=== PATIENT | female | born 1955 | race Caucasian/White ===

== ENCOUNTER 2019-05-29 00:28 | Day surgery (SDC) | payer BC, SELFPAY ==
--- NOTE | 2019-05-28 17:31 | WPDANESEPP ---
Anes - Eval Pre Procedure Procedure: Operation Date: 05/29/19 08:00 Proposed Procedures p Screening Colonoscopy - Tiago Dior MD Date/Time: 05/28/19 17:31 Pre Op Diagnosis: Neoplasm Screening/ Fam Hx Colon Polyps Patient Data Age: 63 Gender: F Height: Weight: Allergies Allergy/AdvReac Type Severity Reaction Status Date / Time dexlansoprazole Allergy Unknown SWELLING Verified 05/15/19 13:36 TO EYES Home Medications Medication Instructions Recorded Confirmed Type alprazolam 0.5 mg PO TID PRN 05/15/19 05/15/19 History ascorbic acid (vitamin C) [Vitamin 1 g PO DAILY 05/15/19 05/15/19 History C] cholecalciferol (vitamin D3) 2,000 unit PO DAILY 05/15/19 05/15/19 History [Vitamin D3] sertraline 100 mg PO DAILY 05/15/19 05/15/19 History valsartan-hydrochlorothiazide 160 tablet PO DAILY 05/15/19 05/15/19 History Patient hx anesthesia problems: none Family hx anesthesia problems: none PMFSH Past Medical History Medical History (Updated 05/28/19 @ 17:32 by Belinda Matthew CRNA) Anxiety Depression HLD (hyperlipidemia) HTN (hypertension) Liver lesion Exam Day of Procedure 05/28/19 17:31
[2019-05-29 06:55] VITALS: BP 105/72; PULSE 82; RESP 16; TEMP 36.9; O2SAT 98
[2019-05-29] MEDS: LACTATED RINGERS 1,000 ML 150 ML IV CONT (06:59)
--- NOTE | 2019-05-29 07:22 | WPDANESEFPP ---
Anes - Eval Final PreProcedure Day of Procedure 05/29/19 07:22 Patient weight: normal Heart: regular rate and rhythm Lungs: clear to auscultation Airway: Mallampati scale Neurological: alert and oriented ASA classification: II Emergent: no Anesthetic plan: proceed Anesthesia type and monitoring: general GIVS and standard monitoring Informed Consent: The patient's anesthetic plan and its attendant risks and benefits were discussed with the patient/family/POA. Questions were solicited and answers provided to the satisfaction of the patient/family/POA.
--- NOTE | 2019-05-29 08:04 | WPDGICN ---
Assessment and Plan Additional Plan This is a 63-year-old white female patient seen in evaluation at the request of Dr. Gahssan El. Patient states that her current weight appetite bowel movements are normal. She denies any blood in her stools. She denies any abdominal pain. Her bowel habits are regular. Family history is significant her mother had colon polyps. Current medications include Diovan period and hydrochlorothiazide. Patient is allergic to Dexilant. Physical exam reveals her to be alert. Oriented x3. Vital signs stable. HEENT exam unremarkable. Lungs are clear to auscultation and percussion. Heart is without murmur or extra sounds. Abdominal exam bowel sounds are present soft nontender with no organomegaly. Digital external rectal exam normal. Impression 1. Family history of colon polyps in mother. Plan is for screening colonoscopy now and it intervals in the future. Typically 5 years is suggested. GI Consult Note Consult date/time: 05/29/19 08:04 HPI: Erum Mitchell is a 63 year old female [facility] Past Medical History Medical History (Updated 05/28/19 @ 17:32 by Belnida Matthew CRNA) Anxiety Depression HLD (hyperlipidemia) HTN (hypertension) Liver lesion Meds Home Medications and Allergies Home Medications Medication Instructions Recorded Confirmed Type alprazolam 0.5 mg PO TID PRN 05/15/19 05/15/19 History ascorbic acid (vitamin C) [Vitamin 1 g PO DAILY 05/15/19 05/15/19 History C] cholecalciferol (vitamin D3) 2,000 unit PO DAILY 05/15/19 05/15/19 History [Vitamin D3] sertraline 100 mg PO DAILY 05/15/19 05/15/19 History valsartan-hydrochlorothiazide 160 tablet PO DAILY 05/15/19 05/15/19 History Allergies Allergy/AdvReac Type Severity Reaction Status Date / Time dexlansoprazole Allergy Unknown SWELLING Verified 05/29/19 06:53 TO EYES Vital Signs Vital Signs - 24 hr 05/29/19 06:55 Temperature 36.9 C Pulse Rate 82 Respiratory Rate 16 Blood Pressure 105/72 Pulse Oximetry 98
[2019-05-29 08:31] VITALS: BP 101/67; PULSE 65; RESP 16
[2019-05-29 08:41] VITALS: BP 107/78; PULSE 61; RESP 18; O2SAT 100
[2019-05-29 08:51] VITALS: BP 119/72; PULSE 55; RESP 16; O2SAT 100
== END 2019-05-29 09:04 | disposition home or self-care (01) ==
PROVIDERS: PCP Internal Medicine; Visit Provider Internal Medicine Gastroenterology
PROC: 0DJD8ZZ Inspection of Lower Intestinal Tract, Via Natural or Artificial Opening Endoscopic (ICD-10-PCS; CPT 45378; principal; 2019-05-29 08:00)
DX: Z12.11 Encounter for screening for malignant neoplasm of colon (principal); K57.30 Diverticulosis of large intestine without perforation or abscess without bleeding; K64.8 Other hemorrhoids; Z83.71 Family history of colonic polyps; I10 Essential (primary) hypertension; E78.5 Hyperlipidemia, unspecified; F41.8 Other specified anxiety disorders
CPT/HCPCS: 45378; J2704; J7120

== ENCOUNTER 2023-10-08 12:18 | Emergency (ER) | payer MEDICARE, SELFPAY ==
[2023-10-08 12:28] VITALS: BP 113/69; PULSE 98; RESP 16; TEMP 37.3; O2SAT 97
--- NOTE | 2023-10-08 12:44 | ED.ANIMALBIT ---
HPI - Animal Bite General Chief Complaint: Animal Bite Stated Complaint: Dog Bite Time Seen by Provider: 10/08/23 12:30 Source: patient Mode of arrival: ambulatory Limitations: no limitations History of Present Illness HPI narrative: Erum is a 67-year-old female patient presenting to the clinic today with complaints of a dog bite to the left dorsal hand. She reports that she was bit by her own dog it last night. Dog is up-to-date on vaccinations. She states she woke up this morning with her left hand swelling with redness and swelling extending into the mid forearm. She denies any fever, chills, or body aches. She is not diabetic. Tetanus is not up today according to chart records. Related Data Home Medications Medication Instructions Recorded Confirmed multivitamin 1 tablet PO DAILY 03/07/23 10/08/23 Allergies Allergy/AdvReac Type Severity Reaction Status Date / Time dexlansoprazole Allergy Unknown SWELLING Verified 10/08/23 12:23 TO EYES Review of Systems Review of Systems: Pertinent positives per HPI. Patient denies any fever, chills, headache, visual changes, dizziness, cough, runny nose, sore throat, shortness of breath, chest pain, palpitations, nausea, vomiting, diarrhea, constipation, abdominal pain, or any urinary issues. [facility] Past Medical History Medical History (Updated 10/08/23 @ 12:52 by Filemon Sim APRN) Anxiety Depression HLD (hyperlipidemia) HTN (hypertension) Liver lesion Right wrist pain Surgical History Surgical History No pertinent past surgical history Social History Social History Smoking status: Never smoker Alcohol intake: current Drinks per week: 7 Substance use: never Lack of Transportation: No Lack of Food: Never True Current Housing: I Have Housing Concerned About Future Housing: No Difficulty Paying Gas/Electric Bills: No Difficulty Paying for Meds: No Currently Unemployed: No Difficulty w/ Childcare or Family Care: No Living arrangements: with family Occupation/Education: retired Gender identity (if verbalized by the patient): Female Comments At the time of my signature, I reviewed and agree with the nursing past medical, surgical, social, and family history. There is no relevant family history pertinent to the patient complaint. Exam Narrative: General: Well-developed, well nourished, in no apparent distress Head: Normocephalic, atraumatic. Cardio: Regular rate and rhythm, s1 and s2 normal, no murmur appreciated. Resp: Clear to auscultation bilaterally, no rhonchi, rales, wheezing or rubs. Musculoskeletal: No deformity, redness and swelling noted to the left hand up to the mid forearm with lymphatic streaking on the ulnar aspect of the left forearm and into the left upper arm. Tender to palpation over the left dorsal hand, scabbed over puncture wound to the mid dorsal hand, grossly normal range of motion, muscle strength strong and equal, peripheral pulse strong, no cyanosis, normal gait and station Course Course Emergency Course: Portions of this record may have been created with voice recognition software. Level of Care: Express Care Visit Vital Signs Vital signs: Vital Signs Temperature 37.3 C 10/08/23 12:28 Pulse Rate 98 10/08/23 12:28 Respiratory Rate 16 10/08/23 12:28 Blood Pressure 113/69 10/08/23 12:28 Pulse Oximetry 97 10/08/23 12:28 Temperature 37.3 C 10/08/23 12:28 Pulse Rate 98 10/08/23 12:28 Respiratory Rate 16 10/08/23 12:28 Blood Pressure 113/69 10/08/23 12:28 Pulse Oximetry 97 10/08/23 12:28 Vital signs reviewed MDM - Animal Bite MDM Narrative Medical decision making narrative: At the time of visit patient is resting comfortably on the exam table. Patient appears to be nontoxic. Plan: Recommend transfer to the ER as
== END 2023-10-08 12:42 | disposition short-term general hospital (02) ==
PROVIDERS: Emergency Provider Nurse Practitioner Family; PCP Physician Assistant Medical
DX: S61.432A Puncture wound without foreign body of left hand, initial encounter (principal); L03.114 Cellulitis of left upper limb; W54.0XXA Bitten by dog, initial encounter; E78.5 Hyperlipidemia, unspecified; I10 Essential (primary) hypertension; F41.9 Anxiety disorder, unspecified
CPT/HCPCS: 99212; G0463

== ENCOUNTER 2023-10-08 13:22 | Emergency (ER) | payer MEDICARE, SELFPAY ==
[2023-10-08 13:23] VITALS: BP 121/62; PULSE 121; RESP 16; TEMP 36.5; O2SAT 100
[2023-10-08] MEDS: AMPICILLIN SULB 3 GM/NS 100 ML 3 GM/100 ML VIAL IVPB (14:46)
[2023-10-08 15:01] LABS: Basophils Percent Auto 0.3 % (0.2-1.2); Eosinophils Percent Auto 0.2 % (0-4.4); Hematocrit 39.8 % (37.0-47.0); Hemoglobin 13.6 g/dL (12.0-15.0); Immature Granulocyte Absolute 0.03 K/mm3 (0.00-0.031); Immature Granulocyte Percent A 0.3 % (0-0.5); Lymphocytes Absolute Auto 1.38 K/mm3 (0.9-3.2); Lymphocytes Percent Auto 12.8 % (18.3-44.2); Mean Corpuscular HGB Conc 34.2 g/dl (32-36); Mean Corpuscular Hemoglobin 33.7 pg (26-34); Mean Corpuscular Volume 98.5 fl (80-100); Mean Platelet Volume 10.4 fl (7.4-10.4); Monocytes Absolute Auto 0.9 K/mm3 (0.1-0.6); Monocytes Percent Auto 8.2 % (2.6-8.5); Neutrophils Absolute Auto 8.4 K/mm3 (1.3-6.7); Neutrophils Percent Auto 78.2 % (45.5-73.1); Platelet Count Result 157 k/mm3 (150-375); Red Blood Count 4.04 M/mm3 (4.2-5.4); Red Cell Distribution Width 12.6 % (11.5-14.5); White Blood Count 10.7 K/mm3 (4.5-10.0)
--- NOTE | 2023-10-08 15:11 | ED.ANIMALBIT ---
HPI - Animal Bite General Chief Complaint: Animal Bite Stated Complaint: dog bite Time Seen by Provider: 10/08/23 14:00 Source: patient Mode of arrival: ambulatory Limitations: no limitations History of Present Illness HPI narrative: This is a 67-year-old female who presents to the ED with chief complaint of dog bite injury to the left hand that occurred yesterday. Patient reports that today the hand became swollen and red. She noticed streaking going up the arm. She will went to urgent care referred her to the ED further evaluation and management. Patient states that she has been feeling fine otherwise. There is some pain with palpation. Denies numbness, weakness, nausea, vomiting, chest pain, cough, headache. States that it was her dog and the dog is vaccinated Related Data Home Medications Medication Instructions Recorded Confirmed multivitamin 1 tablet PO DAILY 03/07/23 10/08/23 Allergies Allergy/AdvReac Type Severity Reaction Status Date / Time dexlansoprazole Allergy Unknown SWELLING Verified 10/08/23 14:25 TO EYES Review of Systems Review of Systems: All systems as dictated in [facility] Past Medical History Medical History (Updated 10/08/23 @ 15:35 by Aaron Trevizo PA-C) Anxiety Depression HLD (hyperlipidemia) HTN (hypertension) Liver lesion Right wrist pain Surgical History Surgical History No pertinent past surgical history Social History Social History Smoking status: Never smoker Alcohol intake: current Drinks per week: 7 Substance use: never Lack of Transportation: No Lack of Food: Never True Current Housing: I Have Housing Concerned About Future Housing: No Difficulty Paying Gas/Electric Bills: No Difficulty Paying for Meds: No Currently Unemployed: No Difficulty w/ Childcare or Family Care: No Living arrangements: with family Occupation/Education: retired Gender identity (if verbalized by the patient): Female Exam Narrative: GENERAL: Well-appearing, well-nourished, and in no acute distress. HEAD: Normocephalic, atraumatic. EYES: PERRLA and EOMI. ENT: Nares clear, no rhinorrhea or epistaxis. Mucous membranes moist. Oropharynx without tonsillar hypertrophy exudate or other lesions. NECK: Supple. No adenopathy or masses. CHEST: No respiratory distress. Clear to auscultation. No wheezes rales or rhonchi HEART: Regular rate and rhythm. No murmur heard. Normal peripheral pulses. ABDOMEN: Soft, nontender, nondistended, normal active bowel sounds. MSK: Normal range of motion. No edema. SKIN: erythematous left hand. Lymphatic red streaking up the arm all the way to axilla. Tender to palpation. Small bite margarita region to the dorsum of the left hand. compartments are soft NEURO: Alert and oriented x4. No focal deficits. PSYCH: Normal mood and affect. Course Vital Signs Vital signs: Vital Signs Temperature 97.7 F 10/08/23 13:23 Pulse Rate 121 H 10/08/23 13:23 Respiratory Rate 16 10/08/23 13:23 Blood Pressure 121/62 10/08/23 13:23 Pulse Oximetry 100 10/08/23 13:23 Temperature 97.7 F 10/08/23 13:23 Pulse Rate 121 H 10/08/23 13:23 Respiratory Rate 16 10/08/23 13:23 Blood Pressure 121/62 10/08/23 13:23 Pulse Oximetry 100 10/08/23 13:23 MDM - Animal Bite MDM Narrative Medical decision making narrative: This is a 67-year-old female who presents to the ED with chief complaint of redness and streaking of the left arm after dog bite injury yesterday. Vitals are normal. Exam shows lymphangitic streaking up the left arm towards axilla. There is erythema most concentrated around the dorsum of the left hand. The compartments are soft. Lab work shows only mildly elevated white count. CMP unremarkable. CRP is 5.5. She is otherwise well-appearing on exam. She is much
[2023-10-08 15:13] LABS: Alanine Aminotransferase 40 U/L (6-35); Albumin Level 5.1 g/dL (3.5-5.1); Alkaline Phosphatase 48 U/L (38-126); Anion Gap 8 mmol/L (4-12); Aspartate Amino Transferase 38 U/L (14-36); Bilirubin,Total 0.7 mg/dL (0.2-1.3); Blood Urea Nitrogen 23 mg/dL (7-17); CRP 5.5 mg/dL (<1.0); Calcium 9.5 mg/dL (8.4-10.2); Carbon Dioxide 28 mmol/L (22-30); Chloride 102 mmol/L (98-107); Estimated CRCL calculation 56 ml/min; Estimated Glomerular Filt Rate > 60; Glucose 99 mg/dL (65-110); Potassium 3.7 mmol/L (3.4-5.0); Sodium 138 mmol/L (137-145)
[2023-10-08 15:37] VITALS: BP 138/79; PULSE 75; RESP 19; O2SAT 99
== END 2023-10-08 15:50 | disposition home or self-care (01) ==
PROVIDERS: Emergency Provider Physician Assistant; PCP Physician Assistant Medical
DX: L03.114 Cellulitis of left upper limb (principal); S61.452A Open bite of left hand, initial encounter; E78.5 Hyperlipidemia, unspecified; I10 Essential (primary) hypertension; W54.0XXA Bitten by dog, initial encounter
CPT/HCPCS: 36415; 80053; 85025; 86140; 96365; 99284; J0295

== ENCOUNTER 2024-04-11 11:01 | Emergency (ER) | payer MEDICARE, SELFPAY ==
[2024-04-11 11:16] VITALS: BP 135/82; PULSE 73; RESP 16; TEMP 36.7; O2SAT 100
--- NOTE | 2024-04-11 11:23 | ED_ITS ---
HPI - Skin/Abscess/Foreign Bdy General Chief complaint: Skin/Abscess/Foreign Body Stated complaint: shingles Time Seen by Provider: 04/11/24 11:23 Source: patient, RN notes reviewed and old records reviewed Mode of arrival: ambulatory Limitations: no limitations History of Present Illness HPI narrative: patient presents with complaints of 2 days of increasingly painful rash to right-sided torso. Reports rash is spreading. Initially was itchy, now with burning in quality. Patient has been using topicals with no relief. She does have history of chickenpox as a child Related Data Home Medications ?Medication ?Instructions ?Recorded ?Confirmed ?Last Taken ?Type multivitamin 1 tablet PO DAILY 03/07/23 10/10/23 Unknown History Allergies Allergy/AdvReac Type Severity Reaction Status Date / Time dexlansoprazole Allergy Unknown SWELLING Verified 04/11/24 11:14 TO EYES Review of Systems 2 Review of Systems: All systems reviewed & are unremarkable except as noted in HPI and below Constitutional: Constitutional: Reports no additional constitutional complaints ENT: Reports system reviewed and no additional complaints, except as documented Cardiovascular: Cardiovascular: Reports no additional cardiovascular complaints Respiratory: Respiratory: Reports no additional respiratory complaints Gastrointestinal: Gastrointestinal: Reports no additional gastrointestinal complaints Integumentary/Breasts: Skin/Breast: Reports system reviewed and no additional complaints, except as docu, Reports as per HPI and Reports rash PMFSH Past Medical History Medical History Anxiety Depression HLD (hyperlipidemia) HTN (hypertension) Liver lesion Right wrist pain Surgical History Surgical History No pertinent past surgical history Social History Social History Smoking status: Never smoker Alcohol intake: current Drinks per week: 7 Substance use: never Lack of Transportation: No Lack of Food: Never True Current Housing: I Have Housing Concerned About Future Housing: No Difficulty Paying Gas/Electric Bills: No Difficulty Paying for Meds: No Currently Unemployed: No Difficulty w/ Childcare or Family Care: No Living arrangements: with family Occupation/Education: retired Gender identity (if verbalized by the patient): Female Comments At the time of my signature, I reviewed and agree with the nursing past medical, surgical, social, and family history. There is no relevant family history pertinent to the patient complaint. Exam 2 Const: General: cooperative, no acute distress, alert and awake O rientation/consciousness: oriented to person, oriented to place and oriented to time HENMT: Head: normal to inspection Resp: Effort & Inspection: normal respiratory effort and able to speak in complete sentences Auscultation: clear to auscultation bilaterally, no crackles, no rales, no rhonchi and no wheezes Cardio: Palpation: normal PMI Rate: regular rate Rhythm: regular rhythm Heart sounds: S1 normal heart sound present and S2 normal heart sound present Skin: Full body images: 1. vesicular rash Neuro: General: oriented to person, oriented to place and oriented to time Cranial nerves: Yes CN's II-XII intact bilaterally Psych: Appearance: grossly normal Thought process: Normal thought process present Insight: Good insight present (Psych) Judgement: Good judgement present (Psych) Course Course Level of Care: Express Care Visit Vital Signs Vital signs: Vital Signs Temperature 98.0 F 04/11/24 11:16 Pulse Rate 73 04/11/24 11:16 Respiratory Rate 16 04/11/24 11:16 Blood Pressure 135/82 04/11/24 11:16 Pulse Oximetry 100 04/11/24 11:16 Oxygen Delivery Room Air 04/11/24 11:16 Temperature 98.0 F 04/11/24 11:16 Pulse Rate 73 04/11/24 11:16 Respiratory Rate 16 04/11/24 11:16 Blood Pressure 135/82 04/11/24 11:16 Pulse Oximetry 100 04/11/24 11:16 Oxygen Delivery Room Air 04/11/24 11:16 Reviewed MDM - Skin/Abscess/Foreign Bdy MDM Narrative Medical decision making narrative: fascicular rash limited to the right side of the torso consistent with herpes zoster. Treat as such. Patient nontoxic appearing, stable for discharge home. Discharge instructions reviewed with patient, as well as provided in writing per nursing staff. The instructions also include specific and strict return/GO TO THE ER as well as f/u information. All questions have been answered, and the patient deny any further questions with discharge and discharge plan. Some parts of this dictation were generated by voice recognition software and may contain typographical and/or grammatical inaccuracies. Differential Diagnosis Differential diagnosis: Likely urticaria, herpes zoster, allergic reaction to drug and cellulitis Medical Records Attestation: I reviewed the patient's medical records. Discharge Plan Discharge Clinical Impression: Herpes zoster Patient Disposition: Home, Self-Care Condition: Stable Instructions: Antibiotic Form, Shingles (ED) Additional Instructions: take medications as prescribed. Follow with primary care provider. Emergency department for new or worse symptoms Patient Language: Austrian Prescriptions: New valacyclovir [Valtrex] 1 gram tablet 1,000 mg PO Q8H 7 Days Qty: 21 1RF No Action multivitamin Tablet 1 tablet PO DAILY alprazolam 0.5 mg tablet 0.5 mg PO TID PRN (Reason: Anxiety) Qty: 60 2RF valsartan-hydrochlorothiazide 160-12.5 mg tablet 1 tablet PO DAILY Qty: 90 0RF Follow-up/Referrals: Romina Peralta PA-C [Primary Care Provider] - 1 Week Time of Disposition: 11:35
== END 2024-04-11 11:39 | disposition home or self-care (01) ==
PROVIDERS: Emergency Provider Nurse Practitioner Family; PCP Physician Assistant Medical
DX: B02.9 Zoster without complications (principal); F41.8 Other specified anxiety disorders; E78.5 Hyperlipidemia, unspecified; I10 Essential (primary) hypertension
CPT/HCPCS: 99213; G0463

== ENCOUNTER 2025-04-15 01:14 | Day surgery (SDC) | payer MEDICARE, SELFPAY ==
[2025-03-21 10:53] VITALS: BMI 19.8
--- OUTSIDE RECORDS SUMMARY | 2025-04-15 01:17 | XMS_ITS | Clinical Summary ---
Author Organization [facility] [employer] Address [address] [place] [address] Care Team Providers Care Jalousie Installer Name Role Phone Ghassan El MD Primary Care Provider [phone] Source Comments [facility],non-owned Affiliates and Associated Physician Practices is amultiple site organization consisting of ambulatory clinics and hospital sitesin [place] and [place]. This disclosure is being madepursuant to the Care Everywhere program and may not contain all information available regarding this patient. Last updated 18.[facility] [employer] Allergies Active Allergy Reactions Criticality Noted Date Comments Dexlansoprazole Swelling 12/20/2011 Facial swelling Medications * Be aware that medications may not be up to date on this document. Alwaysverify current medications with the patient. ALPRAZolam (XANAX) 0.5 MG tablet Take 1 tablet by mouth as needed 2 01/21/2018 Active valsartan-hydro CHLOROthiazide (DIOVAN HCT) 160-12.5 MG tablet Take 1 tablet by mouth once daily 0 11/06/2017 Active fluocinolone-hy droquinone-tret inoin (TRI-JC) 0.01-4-0.05 % cream Apply to affected area nightly, for fall, winter, and spring. 30 g 5 01/25/2021 Active Tretinoin (ALTRENO) 0.05 % lotion Apply as directed at bedtime. 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 (F LUZONE; FLULAVAL; FLUARIX; AFLURIA QUADRIVALENT; 6MO+), 0.5 ML (IIV4) 01/30/2019 Family History Medical History Relation Name Comments Cancer - Skin, Non Melanoma Mother Cancer - Skin, Melanoma Neg Hx Relation Name Status Comments Mother Social History Tobacco Use Types Packs/Day Years Used Date Smoking Tobacco: Never Smokeless Tobacco: Never Alcohol Use Standard Drinks/Week Comments Yes 0 (1 standard drink = 0.6 oz pur e alcohol) Comments Unknown Sex and Gender Information Value Date Recorded Sex Assigned at Not on file Legal Sex Female 6:17 AM [employer] Gender Identity Not on file Sexual Orientation Not on file Plan of Treatment Health Maintenance Due Date Last Done Comments BONE DENSITY TESTING 1955 COLOGUARD (AGES 45-75) - COLON CA SCREENING 1956 COLON MONITORING 1956 COLONOSCOPY - COLON CA SCREENING 1956 CT COLONOGRAPHY - COLON CA SCREENING 1956 Colorectal Cancer Screening 1956 FIT - COLON CA SCREENING 1956 FLEX SIG - COLON CA SCREENING 1956 LIPID TESTING 1956 MAMMOGRAM 1956 HEPATITIS C SCREENING 10/06/1974 DTAP/TDAP/TD VACCINES (1 - Tdap) 10/11/1975 PNEUMOCOCCAL VACCINE 50+ (1 of 1 - PCV) 2006 ZOSTER VACCINE (1 of 2) 2006 DEPRESSION SCREENING 04/17/2024 COVID-19 VACCINE (1 - 2024- season) 2024 INFLUENZA VACCINE (#1) 2024 , 01/06/2020, 03/01/2019, Additional history exists Respiratory Syncytial Virus (RSV) Vaccine Pt: or over 60 yrs (1 - 1-dose 75+ series) 10/11/2031 HEPATITIS B VACCINE Aged Out No longe r eligible based on patient's age to complete this topic HIB VACCINE Aged Out No longer eligi ble based on patient's age to complete this topic HPV VACCINE Aged Out No longer eligi ble based on patient's age to complete this topic MENINGOCOCCAL (Group B) VACCINE SHARED DECISION-MAKING Aged Out No longer eligible based on patient's age to complete this topic MENINGOCOCCAL GROUPS A/C/Y/W VACCINE Aged Out No longer eligible based on patient's age to complete this topic Insurance [facility] Care Teams Jalousie Installer Relationship Specialty Start Date End Date Ghassan El MD [address] [place] [address] [address] [place] [address] [phone] PCP - General 05/01/19
--- OUTSIDE RECORDS SUMMARY | 2025-04-15 01:17 | XMS_ITS | Clinical Summary ---
Author Organization [facility] Address [address] [place] [address] Phone Care Team Providers Care Supervisor Blood Name Role Phone Ghassan El MD Primary Care Provider [phone] Allergies Active Allergy Reactions Criticality Noted Date Comments Dexlansoprazole Swelling Low 12/20/2011 Medications ALPRAZolam (XANAX) 0.5 mg tablet Take 0.5 mg by mouth 2 times daily as needed. 05/01/2022 Active valsartan-hydro CHLOROthiazide (DIOVAN HCT) 160-12.5 mg tablet Take 1 Tablet by mouth daily. 05/16/2022 Active tretinoin (RETIN-A) 0.05 % Cream APPLY TO FACE ONCE NIGHTLY 03/17/2024 Active sertraline (ZOLOFT) 50 mg tabletIndicatio ns:Other social stressor Take 1 Tablet (50 mg) by mouth daily. 90 Tablet 4 05/08/2024 Active Active Problems Problem Noted Date Diagnosed Date Menopausal symptoms 12/20/2011 S/P vaginal hysterectomy 12/20/2011 Overview (12/20/2011): 1996 TVH (symptomatic uterine fibroids) Personal history of benign breast biopsy 012 Overview (12/20/2011): 1996, 2000 right/left (hx fibroadenoma) Family history of malignant neoplasm of breast 0 12/20/2011 Family history of ovarian cancer 12/20/2011 Resolved Problems Problem Noted Date Diagnosed Date Resolved Date Well woman exam with routine gynecological exam 12/20/2011 10/03/2016 Encounters Date Type Department Care Team Description 04/08/2025 External Device Data [facility] ABSTRACTION Provider, Abstract 04/08/2025 External Device Data [facility] ABSTRACTION Provider, Abstract 03/04/2025 External Device Data [facility] ABSTRACTION Provider, Abstract 02/12/2025 External Device Data [facility] ABSTRACTION Provider, Abstract 02/12/2025 External Device Data [facility] ABSTRACTION Provider, Abstract 02/05/2025 External Device Data [facility] ABSTRACTION Provider, Abstract 02/04/2025 External Device Data [facility] ABSTRACTION Provider, Abstract from Last 3 Months Immunizations Immunization Administration Dates Next Due INFLUENZA VACCINE QUADRIVALENT 6 MOS UP IM 02/03 INFLUENZA VACCINE QUADRIVALE NT 6 MOS UP PF IM 01/30/2019 Influenza, Unspecified Formulation 01/15/2021,,03/01/2019 Family History Medical History Relation Name Comments Diabetes Brother None Other Brother None Diabetes Father Ernie Heart Disease Father Ernie Hypertension Father Ernie Other Father Ernie lipid disorder Breast Cancer Maternal Aunt Ovarian Cancer Maternal Grandmother Carrie Heart Disease Mother Enzo Hypertension Mother Enzo Other Mother Enzo colon polyps, l ipid disorder, fibroids Thyroid Disease Mother Enzo Diabetes Paternal Aunt Diabetes Paternal Uncle Thyroid Disease Sister 1 Carina Thyroid Disease Sister 2 Flory Colon Cancer Neg Hx Relation Name Status Comments Brother None Father Ernie Maternal Aunt Maternal Grandmother Carrie Mother Enzo Paternal Aunt Paternal Uncle Sister 1 Carina Sister 2 Flory Social History Tobacco Use Types Packs/Day Years Used Date Smoking Tobacco: Never Smokeless Tobacco: Never Tobacco Cessation:Counseling Given: Not Answered Alcohol Use Standard Drinks/Week Comments Yes 0 (1 standard drink = 0.6 oz pur e alcohol) 3/week Comments No Sex and Gender Information Value Date Recorded Sex Assigned at Female 02/22/2024 10:49 AM OUTBOUND SALES PROFESSIONAL Legal Sex Female 5:39 AM OUTBOUND SALES PROFESSIONAL Gender Identity Female 02/22/2024 10:49 AM OUTBOUND SALES PROFESSIONAL Sexual Orientation Not on file Occupation Industry Job Start Date Job End Date Not on file Not on file Not on file Not on file Last Filed Vital Signs Vital Sign Reading Time Taken Comments Blood Pressure 128/82 05/08/2024 1:04 PM OUTBOUND SALES PROFESSIONAL Pulse 67 04/01/2013 2:02 PM OUTBOUND SALES PROFESSIONAL Temperature - - Respiratory Rate - - Oxygen Saturation - - Inhaled Oxygen Concentration - - Weight 60.1 kg (132 lb 9.6 oz) 05/08/2024 1:04 P M OUTBOUND SALES PROFESSIONAL Height 167.6 cm (5' 6) 05/08/2024 1:04 PM OUTBOUND SALES PROFESSIONAL Body Mass Index 21.4 05/08/2024 1:04 PM OUTBOUND SALES PROFESSIONAL Plan of Treatment Health Maintenance Due Date Last Done Comments DTAP/TDAP/TD VACCINES (1 - Tdap) 10/11/1975 FIT-DNA Q 3 years 2001 Flex Sig/CT Colonography Q 5 years 2001 PNEUMOCOCCAL VACCINE 50+ YEA RS (1 of 1 - PCV) 2006 ZOSTER VACCINE (1 of 2) 2006 FIT/FOBT Q 1 year 04/01/2014 04/01/2013 COLORECTAL SCREENING 01/08/2022 01/09/2012, 04/17/2006 (Previously completed) Colorectal Cancer Screening 01/08/2022 INFLUENZA VACCINE (#1) 2024 01/30/2019, 2017 BREAST CANCER SCREENING 07/03/2025 07/04/19 25, 04/06/2023, 04/06/2022, Additional history exists OSTEOPOROSIS SCREENING 07/03/2029 5, 02/22/2017, 07/13/2011, Additional history exists RSV VACCINE (60+ or ) (1 - 1-dose 75+ series) 10/11/2031 Procedures Procedure Name Priority Date/Time Associated Diagnosis Comments MAMMO 3D JONH SCREEN BILAT W OR WO CAD Routine 07/03/2024 2:31 PM CDT Well woman exam with routine gynecological exam Breast cancer screening by mammogram XR DEXA BONE DENSITY AXIAL 1 OR MORE SITES Routine 07/03/2024 1:47 PM CDT Other primary ovarian failure POC OCCULT BLOOD, IMMUNO, QUAL, STOOL Routine 04/01/2013 2:38 PM OUTBOUND SALES PROFESSIONAL Screening for rectal cancer from Last 3 Months or Most Recently Relevant to Health Maintenance Results * MAMMO 3D JONH SCREEN BILAT W OR WO CAD (07/03/2024 2:31 PM CDT) Anatomical Region Laterality Modality Breast Bilateral Mammography 07/03/2024 2:31 PM CDT Impressions 07/03/2024 2:42 PM CDT IMPRESSION: Negative. RECOMMENDATIONS: Bilateral annual screening mammogram OVERALL FINAL ASSESSMENT: BI-RADS CATEGORY 1 - Negative DICTATION LOCATION: [facility] 07/03/2024 2:42 PM CDT BILATERAL SCREENING DIGITAL MAMMOGRAMS WITH COMPUTER ASSISTED DIAGNOSIS WITH TOMOGRAPHY DATE: 07/03/2024 2:31 PM HISTORY: Routine screening mammogram. . COMPARISON: 04/06/2023 and 04/06/2022. TECHNIQUE: A bilateral screening mammogram was performed. Low-dose full-field digital breast tomosynthesis examination was performed with 2D and 3D acquisitions. Examination is read in conjunction with computer aided detection. BREAST COMPOSITION: Scattered fibroglandular densities. FINDINGS: No new masses, suspicious calcifications or areas of asymmetry or distortion are identified. The images were reviewed using the CAD system. Marlin Herrera MD MAMMO ORDERABLES Final Result * XR DEXA BONE DENSITY AXIAL 1 OR MORE SITES (07/03/2024 1:47 PM CDT) Anatomical Region Laterality Modality Digital Radiogra phy 07/03/2024 1:47 PM CDT Impressions 07/03/2024 1:53 PM CDT IMPRESSION: Osteopenia. Lumbar Spine: T-score: -0.4 Left Femoral Neck: T-score: -1.5 Left Total Femur: T-score: -1.2 Right Femoral Neck: T-score: -1.6 Right Total Femur: T-score: -0.8 Left 33% Radius: T-Score: -0.3 FRAX FRACTURE RISK ASSESSMENT: 10-Year probability of fracture Major osteoporotic fracture: 9 % Defined as fracture of the spine, hip or shoulder. Hip fracture: 1.3 % This is a summary page. Please refer to the complete detailed report found in: Imaging Section of the [facility] EMR. Definitions: Normal: T-score above -1.0 Osteopenia T-score less than -1.0 and above -2.5 Osteoporosis: T-score <= -2.5 Note: Clinical Osteoporosis may be based on other factors besides DXA calculated BMD. OTher factors include and are not limited to fragility fractures, subclinical compression fractures,osteopenia and elevated FRAX Scores. A major osteoporotic fracture is defined as a fracture of the spine, forearm, hip or shoulder. Dictated by Dr. Tiago Vu MD DICTATION LOCATION: 07/03/2024 1:53 PM CDT EXAMINATION: BONE DENSITY STUDY (DXA) DATE: 07/03/2024 1:47 PM HISTORY: 68 years Female. Postmenopausal. PROCEDURE: Planar images of the lumbar spine, hip(s) and forearm(s). [employer] DEXA scanner for bone mineral density determination (BMD). Prior bone density: 02/22/2017 FINDINGS: Lumbar Spine (L1-L4): T-score: -0.4 Prior T-score: 0.4 Left Femoral Neck: T-score: -1.5 Prior T-score: -0.9 Left Total Femur: T-score: -1.2 Right Femoral Neck: T-score: -1.6 Prior T-score: -1.0 Right Total Femur: T-score: -0.8 Left 33% Radius: T-Score: -0.3 Prior T-score: 1.4 TECHNICAL ISSUES: None. Procedure Note Tiago Vu MD - 07/03/2024 EXAMINATION: BONE DENSITY STUDY (DXA) DATE: 07/03/2024 1:47 PM HISTORY: 68 years Female. Postmenopausal. PROCEDURE: Planar images of the lumbar spine, hip(s) and forearm(s). [employer] DEXA scanner for bone mineral density determination (BMD). Prior bone density: 02/22/2017 FINDINGS: Lumbar Spine (L1-L4): T-score: -0.4 Prior T-score: 0.4 Left Femoral Neck: T-score: -1.5 Prior T-score: -0.9 Left Total Femur: T-score: -1.2 Right Femoral Neck: T-score: -1.6 Prior T-score: -1.0 Right Total Femur: T-score: -0.8 Left 33% Radius: T-Score: -0.3 Prior T-score: 1.4 TECHNICAL ISSUES: None. IMPRESSION: Osteopenia. Lumbar Spine: T-score: -0.4 Left Femoral Neck: T-score: -1.5 Left Total Femur: T-score: -1.2 Right Femoral Neck: T-score: -1.6 Right Total Femur: T-score: -0.8 Left 33% Radius: T-Score: -0.3 FRAX FRACTURE RISK ASSESSMENT: 10-Year probability of fracture Major osteoporotic fracture: 9 % Defined as fracture of the spine, hip or shoulder. Hip fracture: 1.3 % This is a summary page. Please refer to the complete detailed report found in: Imaging Section of the [facility] EMR. Definitions: Normal: T-score above -1.0 Osteopenia T-score less than -1.0 and above -2.5 Osteoporosis: T-score <= -2.5 Note: Clinical Osteoporosis may be based on other factors besides DXA calculated BMD. OTher factors include and are not limited to fragility fractures, subclinical compression fractures,osteopenia and elevated FRAX Scores. A major osteoporotic fracture is defined as a fracture of the spine, forearm, hip or shoulder. Dictated by Dr. Tiago Vu MD DICTATION LOCATION: 1 Romina Peralta PA-C DIAGNOSTIC IMAGING ORDERAB LES Final Result * POC OCCULT BLOOD, IMMUNO, QUAL, STOOL (04/01/2013 2:38 PM OUTBOUND SALES PROFESSIONAL) OCCULT BLOOD, IMMUNOASSAY STOOL1 POC negative [facility] OCCULT BLOOD, IMMUNOASSAY STOOL2 POC [facility] OCCULT BLOOD, IMMUNOASSAY STOOL3 POC [facility] Stool specimen (specimen) 04/01/2013 2:38 PM OUTBOUND SALES PROFESSIONAL Carina Adams MD POINT OF CARE TESTING Fi nal Result [facility] from Last 3 Months or Most Recently Relevant to Health Maintenance Insurance [address] [place] [address] [facility] Care Teams Supervisor Blood Relationship Specialty Start Date End Date Ghassan El MD [address] [place] [address] [address] [place] [phone] PCP - General Internal Medicine 07/13/11
--- OUTSIDE RECORDS SUMMARY | 2025-04-15 01:17 | XMS_ITS | Encounter Summary ---
Author Organization [facility] Address [address] [place] [address] Care Team Providers Care Action Installer Name Role Phone Ghassan El MD Primary Care Provider [phone] Encounter Details Date Type Department Care Team (Latest Contact Info) Description 02/15/2008 Outpatient Historical HIS [facility] Carina Adams MD NO ADDRESS ON FILE Other Screening Mammogram Social History Tobacco Use Types Packs/Day Years Used Date Smoking Tobacco: Never Assessed Comments Unknown Sex and Gender Information Value Date Recorded Sex Assigned at Female 02/22/2024 10:49 AM TRAFFIC LIEUTENANT Legal Sex Female 5:39 AM TRAFFIC LIEUTENANT Gender Identity Female 02/22/2024 10:49 AM TRAFFIC LIEUTENANT Sexual Orientation Not on file documented as of this encounter Plan of Treatment Not on file documented as of this encounter Visit Diagnoses Diagnosis Other screening mammogram documented in this encounter Care Teams Action Installer Relationship Specialty Start Date End Date Ghassan El MD [address] [place] [phone] PCP - General Internal Medicine 07/13/11 documented as of this encounter
--- OUTSIDE RECORDS SUMMARY | 2025-04-15 01:17 | XMS_ITS | Encounter Summary ---
Author Organization [facility] Address [address] [place] [address] Care Team Providers Care Web Services Developer Name Role Phone Ghassan Schwartz MD Primary Care Provider [phone] Encounter Details Date Type Department Care Team (Latest Contact Info) Description 02/25/2008 Outpatient Historical HIS [facility] Carina Hardwick MD NO ADDRESS ON FILE Diffuse Cystic Mastopathy Social History Tobacco Use Types Packs/Day Years Used Date Smoking Tobacco: Never Assessed Comments Unknown Sex and Gender Information Value Date Recorded Sex Assigned at Female 02/22/2024 10:49 AM PROSECUTING ATTORNEY Legal Sex Female 5:39 AM PROSECUTING ATTORNEY Gender Identity Female 02/22/2024 10:49 AM PROSECUTING ATTORNEY Sexual Orientation Not on file documented as of this encounter Plan of Treatment Not on file documented as of this encounter Procedures Procedure Name Priority Date/Time Associated Diagnosis Comments US BREAST UNI RIGHT COMPLETE Routine 02/25/2008 2:19 PM PROSECUTING ATTORNEY MAMMO DIAGNOSTIC BILATERAL W OR WO CAD Routine 02/25/2008 2:04 PM PROSECUTING ATTORNEY documented in this encounter Results * US BREAST UNILATERAL RIGHT (02/25/2008 2:19 PM PROSECUTING ATTORNEY) Anatomical Region Laterality Modality Breast Right Other 02/25/2008 2:19 PM PROSECUTING ATTORNEY Narrative 02/27/2008 12:56 PM PROSECUTING ATTORNEY [facility] [address] [place], [place] [address] Admit Date: 02/25/2008 ERUM ROCHA Sex: F Admit Prov: CARINA ADAMS Date: 1955 Primary Care Prov: GHASSAN SCHWARTZ CMRN: [id number] Room: KEENA N: [id number] IMAGING SERVICES Ordering Prov: CARINA ADAMS Accession Number: [id number] Interpretation BILATERAL DIAGNOSTIC DIGITAL MAMMOGRAMS WITH COMPUTER ASSISTED DIAGNOSIS AND RIGHT BREAST SONOGRAM, 02/25/2008 History: Bilateral breast pain. Comparison is made with previous exam from [facility] dated 08/18/2005 and 05/31/2006. Unfortunately these were of the left breast only. No comparison films of the right breast are available at this time. Breast parenchyma is heterogeneously dense. There is an area of distortion in the upper-outer right breast. This corresponds to an area of previous surgery and is not as evident on the spot views. No other mass, suspicious calcifications or areas of distortion or asymmetry are identified. The films were reviewed using the CAD system. Further evaluation of the upper-outer right breast with sonography revealed heterogeneously dense fibroglandular tissue. No underlying mass, shadowing or distortion is identified. The area of distortion in the upper-outer right breast is therefore most consistent with a previous scar. Comparison with prior films however recommended for completeness. Impression: Suspect postbiopsy changes upper-outer right breast. Comparison prior films needed for final disposition. We will send for these films and addendum will be added after they have been reviewed. Negative and stable left breast. Overall assessment: BIRADS category 0 - Needs additional imaging evaluation. Dictated by: JULIANA GEIGER Electronically signed by: JULIANA GEIGER 02/27/2008 12:55 Transcribed: 02/25/2008 21:12 AMK Procedure Note Juliana Geiger - 02/27/2008 [address] [place], [place] [address] Admit Date: 02/25/2008 ERUM ROCHA Sex: F Admit Prov: CARINA ADAMS Date: 1955 Primary Care Prov: GHASSAN SCHWARTZ CMRN: [id number] Room: KEENA SSN: [id number] IMAGING SERVICES Ordering Prov: CARINA ADAMS Wilbert Interpretation BILATERAL DIAGNOSTIC DIGITAL MAMMOGRAMS WITH COMPUTER ASSISTEDDIAGNOSIS AND RIGHT BREAST SONOGRAM, 02/25/2008 History: Bilateral breast pain. [facility] Unfortunately these were of the left breastonly. No comparison films of the right breast are available at this time. Breast parenchyma is heterogeneously dense. There is an area ofdistortion in the upper-outer right breast. This corresponds to an area ofprevious surgery and is not as evident on the spot views. No other mass,suspicious calcifications or areas of distortion or asymmetry are identified.The films were reviewed using the CAD system. Further evaluation of the upper-outer right breast with sonographyrevealed heterogeneously dense fibroglandular tissue. No underlying mass,shadowing or distortion is identified. The area of distortion in the upper-outer right breast is thereforemost consistent with a previous scar. Comparison with prior filmshowever recommended for completeness. Impression: Suspect postbiopsy changes upper-outer right breast. Comparison prior films needed for final disposition. We will send forthese films and addendum will be added after they have been reviewed. Negative and stable left breast. Overall assessment: BIRADS category 0 - Needs additional imaging evaluation. Dictated by: JULIANA GEIGER Electronically signed by: JULIANA GEIGER 02/27/2008 12:55 Transcribed: 02/25/2008 21:12 AMK us Carina Adams MD ORDERABLES Final Re sult * MAMMO DIGITAL DIAG BILAT (02/25/2008 2:04 PM PROSECUTING ATTORNEY) Anatomical Region Laterality Modality Breast Bilateral Other 02/25/2008 2:04 PM PROSECUTING ATTORNEY Narrative 02/29/2008 2:20 PM PROSECUTING ATTORNEY [facility] [address] [place], [place] [address] Admit Date: 02/25/2008 ERUM ROCHA Sex: F Admit Prov: BRADEN CARINA Atkins Date: 1955 Primary Care Prov: GHASSAN SCHWARTZ CMRN: [id number] Room: STANLEYJuventino SSN: [id number] IMAGING SERVICES Ordering Prov: CARINA ADAMS Accession Number: [id number] Addendum ADDENDUM TO MAMMOGRAPHY REPORT OF 02/25/2008 All comparison films from [facility] submitted are of the left breast only. If comparison films of the right breast can be obtained, a second addendum will be added. Otherwise, recommend routine followup. The area of distortion in the upper-outer right breast is most likely secondary to a previous biopsy scar. BI-RADS Category: 1, negative. Assessment BIRADS: 1-Negative Recommendation: Normal interval follow-up Dictated by: JULIANA GEIGER Electronically signed by: JULIANA GEIGER 02/29/2008 14:20 Transcribed: 02/29/2008 10:33 DKT Interpretation BILATERAL DIAGNOSTIC DIGITAL MAMMOGRAMS WITH COMPUTER ASSISTED DIAGNOSIS AND RIGHT BREAST SONOGRAM, 02/25/2008 History: Bilateral breast pain. Comparison is made with previous exam from [facility] dated 08/18/2005 and 05/31/2006. Unfortunately these were of the left breast only. No comparison films of the right breast are available at this time. Breast parenchyma is heterogeneously dense. There is an area of distortion in the upper-outer right breast. This corresponds to an area of previous surgery and is not as evident on the spot views. No other mass, suspicious calcifications or areas of distortion or asymmetry are identified. The films were reviewed using the CAD system. Further evaluation of the upper-outer right breast with sonography revealed heterogeneously dense fibroglandular tissue. No underlying mass, shadowing or distortion is identified. The area of distortion in the upper-outer right breast is therefore most consistent with a previous scar. Comparison with prior films however recommended for completeness. Impression: Suspect postbiopsy changes upper-outer right breast. Comparison prior films needed for final disposition. We will send for these films and addendum will be added after they have been reviewed. Negative and stable left breast. Overall assessment: BIRADS category 0 - Needs additional imaging evaluation. Report revised on 02/29/2008 2:20:01 PM by JULIANA GEIGER Assessment BIRADS: 0-Incomplete: Need additional imaging evaluation Recommendation: Old films for comparison Dictated by: JULIANA GEIGER Electronically signed by: JULIANA GEIGER 02/27/2008 12:55 Transcribed: 02/25/2008 21:12 AMK Procedure Note Juliana Geiger - 02/29/2008 [facility] [address] [place], [place] [address] Admit Date: 02/25/2008 ERUM ROCHA Sex: F Admit Prov: CARINA ADAMS Date: 1955 Primary Care Prov: GHASSAN SCHWARTZ CMRN: [id number] Room: [facility] SSN: [id number] IMAGING SERVICES Ordering Prov: CARINA ADAMS Addendum ADDENDUM TO MAMMOGRAPHY REPORT OF 02/25/2008 All comparison films from [facility] submitted are of theleft breast only. If comparison films of the right breast can be obtained,a second addendum will be added. Otherwise, recommend routine followup.The area of distortion in the upper-outer right breast is most likelysecondary to a previous biopsy scar. BI-RADS Category: 1, negative. Assessment BIRADS: 1-Negative Recommendation: Normal interval follow-up Dictated by: JULIANA GEIGER Electronically signed by: JULIANA GEIGER 02/29/2008 14:20 Transcribed: 02/29/2008 10:33 DKT Interpretation BILATERAL DIAGNOSTIC DIGITAL MAMMOGRAMS WITH COMPUTER ASSISTEDDIAGNOSIS AND RIGHT BREAST SONOGRAM, 02/25/2008 History: Bilateral breast pain. [facility] Unfortunately these were of the left breastonly. No comparison films of the right breast are available at this time. Breast parenchyma is heterogeneously dense. There is an area ofdistortion in the upper-outer right breast. This corresponds to an area ofprevious surgery and is not as evident on the spot views. No other mass,suspicious calcifications or areas of distortion or asymmetry are identified.The films were reviewed using the CAD system. Further evaluation of the upper-outer right breast with sonographyrevealed heterogeneously dense fibroglandular tissue. No underlying mass,shadowing or distortion is identified. The area of distortion in the upper-outer right breast is thereforemost consistent with a previous scar. Comparison with prior filmshowever recommended for completeness. Impression: Suspect postbiopsy changes upper-outer right breast. Comparison prior films needed for final disposition. We will send forthese films and addendum will be added after they have been reviewed. Negative and stable left breast. Overall assessment: BIRADS category 0 - Needs additional imaging evaluation. Report revised on 02/29/2008 2:20:01 PM by JULIANA GEIGER Assessment BIRADS: 0-Incomplete: Need additional imagingevaluation Recommendation: Old films for comparison Dictated by: JULIANA GEIGER Electronically signed by: JULIANA GEIGER 02/27/2008 12:55 Transcribed: 02/25/2008 21:12 AMK us Carina Adams MD MAMMO ORDERABLES Edited documented in this encounter Visit Diagnoses Diagnosis Diffuse cystic mastopathy documented in this encounter Care Teams Web Services Developer Relationship Specialty Start Date End Date Ghassan Schwartz MD [address] [place] [phone] PCP - General Internal Medicine 07/13/11 documented as of this encounter
--- OUTSIDE RECORDS SUMMARY | 2025-04-15 01:17 | XMS_ITS | Encounter Summary ---
Author Organization [employer] [facility] Address [address] [place] [address] Care Team Providers Care Bookkeeping Clerks Supervisor Name Role Phone Ghassan Schwartz MD Primary Care Provider [phone] Encounter Details Date Type Department Care Team (Latest Contact Info) Description 02/15/2008 Outpatient Historical [facility] Carina Adams MD NO ADDRESS ON FILE Special Screening for Osteoporosis Social History Tobacco Use Types Packs/Day Years Used Date Smoking Tobacco: Never Assessed Comments Unknown Sex and Gender Information Value Date Recorded Sex Assigned at Female 02/22/2024 10:49 AM FINANCIAL SERVICES INTERN Legal Sex Female 5:39 AM FINANCIAL SERVICES INTERN Gender Identity Female 02/22/2024 10:49 AM FINANCIAL SERVICES INTERN Sexual Orientation Not on file documented as of this encounter Plan of Treatment Not on file documented as of this encounter Procedures Procedure Name Priority Date/Time Associated Diagnosis Comments XR DEXA BONE DENSITY AXIAL 1 OR MORE SITES Routine 02/15/2008 11:48 AM CDT documented in this encounter Results * XR DEXA BONE DENSITY AXIAL 1 OR MORE SITES (02/15/2008 11:48 AM CDT) Anatomical Region Laterality Modality Other 02/15/2008 11:4 8 AM CDT Narrative 02/15/2008 2:03 PM CDT [facility] [address], [place] [address] Admit Date: 02/15/2008 ERUM ROCHA Sex: F Admit Prov: CARINA ADAMS Date: 1955 Primary Care Prov: GHASSAN SCHWARTZ CMRN: [id number] Room: [facility]: [id number] IMAGING SERVICES Ordering Prov: N/A Accession Number: [id number] Interpretation BONE MINERAL DENSITY (DEXA) HISTORY: 52 year old female with postmenopausal symptoms needing evaluation for osteoporosis. PROCEDURE: Using a [employer]seek iDXA dual energy x-ray absorptiometry system, the patient's bone mineral density was measured over the lumbar spine and femurs. Comparison was made to age and sex matched normal values. FINDINGS: Lateral radiograph of the lumbar spine demonstrates no evidence of fracture. Lumbar Spine ( L1-L4) Bone Mineral Density = 1.357 gm/cm2 Compared to young adult (T-score), difference of +1.5 Standard Deviations. The patient's spine BMD is above normal when compared to that of a young adult. The patient's risk for fracture is negligible. Left Femoral Neck Bone Mineral Density = 1.035 gm/cm2 Compared to young adult (T-score), difference of +0.5 Standard Deviations. The patient's left femoral neck BMD is normal when compared to that of a young adult. The patient's risk for fracture is very low. No prior DEXA studies are available for comparison. . Dictated by: TREY CAMP 02/15/2008 13:54 Electronically signed by: TREY CAMP 02/15/2008 14:01 Procedure Note Trey Camp - 02/15/[address] [address] Admit Date: 02/15/2008 ERUM ROCHA Sex: F Admit Prov: CARINA ADAMS Date: 1955 Primary Care Prov: GHASSAN SCHWARTZ CMRN: [id number] [id number] [facility] Ordering Prov: N/A Interpretation BONE MINERAL DENSITY (DEXA) HISTORY: 52 year old female with postmenopausal symptoms needing evaluationfor osteoporosis. PROCEDURE: Using a [employer]seek iDXA dual energy x-ray absorptiometry system, the patient's bone mineral density was measured over the lumbar spineand femurs. Comparison was made to age and sex matched normal values. FINDINGS: Lateral radiograph of the lumbar spine demonstrates no evidence of fracture. Lumbar Spine ( L1-L4) Bone Mineral Density = 1.357 gm/cm2 Compared to young adult (T-score), difference of +1.5Standard Deviations. The patient's spine BMD is above normal when compared to that of ayoung adult. The patient's risk for fracture is negligible. Left Femoral Neck Bone Mineral Density = 1.035 gm/cm2 Compared to young adult (T-score), difference of +0.5Standard Deviations. The patient's left femoral neck BMD is normal when compared to thatof a young adult. The patient's risk for fracture is very low. No prior DEXA studies are available for comparison. . Dictated by: TREY CAMP 02/15/2008 13:54 Electronically signed by: TREY CAMP 02/15/2008 14:01 Carina Adams MD DIAGNOSTIC IMAGING ORDER RHETT Final Result documented in this encounter Visit Diagnoses Diagnosis Special screening for osteoporosis documented in this encounter Care Teams Bookkeeping Clerks Supervisor Relationship Specialty Start Date End Date Ghassan Schwartz MD [address] [place] [phone] PCP - General Internal Medicine 07/13/11 documented as of this encounter
--- OUTSIDE RECORDS SUMMARY | 2025-04-15 01:17 | XMS_ITS | Clinical Summary ---
Author Organization [facility] Address [address] [place] [id number] Care Team Providers Care Warehouse Operations Manager Name Role Phone Unavailable Primary Care Provider Unavailabl e Social History Tobacco Use Types Packs/Day Years Used Date Smoking Tobacco: Never Assessed Comments Unknown Sex and Gender Information Value Date Recorded Sex Assigned at Not on file Legal Sex Female 5:31 PM CDT Gender Identity Not on file Sexual Orientation Not on file Plan of Treatment Health Maintenance Due Date Last Done Comments Colorectal Cancer Screening Colonoscopy (10 Years) 1955 Hepatitis C 1974 DTaP, Tdap and Td Vaccines ( 1 - Tdap) 10/11/1975 Mammogram Screening 1996 Pneumococcal Vaccine: 50+ Ye ars (1 of 1 - PCV) 2006 Zoster Vaccines (1 of 2) 2006 Dexa Scan (General) 2021 COVID-19 Vaccine ( - 2024-2 6 season) 2024 Influenza Adult (#1) 2025 RSV Immunization or 60+ Years (1 - 1-dose 75+ series) 10/11/2031 Hepatitis A Vaccines Aged Out No long er eligible based on patient's age to complete this topic Meningococcal B Vaccine Aged Out No l onger eligible based on patient's age to complete this topic Meningococcal Vaccine Aged Out No coco louisa eligible based on patient's age to complete this topic RSV Immunizations Under 20 Months Aged Out No longer eligible based on patient's age to complete this topic
--- OUTSIDE RECORDS SUMMARY | 2025-04-15 01:17 | XMS_ITS | Encounter Summary ---
Author Organization [facility] Address [address] [facility] [place] [address] Care Team Providers Care Toll Bridge Attendant Name Role Phone Ghassan El MD Primary Care Provider [phone] Reason for Visit * Reason Onset Date Comments Med Question 09/20/2021 Encounter Details Date Type Department Care Team (Late st Contact Info) Description 09/20/2021 Telephone [facility] [address] [facility] [place] [phone] Sarah Pathak MD [address] [facility] [address] [place] [address] Med Question Social History Tobacco Use Types Packs/Day Years Used Date Smoking Tobacco: Never Smokeless Tobacco: Never Alcohol Use Standard Drinks/Week Comments Yes 0 (1 standard drink = 0.6 oz pur e alcohol) Comments Unknown Sex and Gender Information Value Date Recorded Sex Assigned at Not on file Legal Sex Female 6:17 AM 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 Please advise documented in this encounter Plan of Treatment Not on file documented as of this encounter Visit Diagnoses Not on filedocumented in this encounter Care Teams Toll Bridge Attendant Relationship Specialty Start Date End Date Ghassan El MD [address] [place] [id number] PCP - General 05/01/19 documented as of this encounter
[2025-04-15 09:38] VITALS: BP 122/67; PULSE 96; RESP 16; TEMP 36.7; O2SAT 100; BMI 16.0
[2025-04-15] MEDS: LACTATED RINGERS 1,000 ML 150 ML IV CONT (09:45)
--- NOTE | 2025-04-15 10:13 | PM.HPGS ---
History of Present Illness History of Present Illness Consent: Risks, benefits, and alternatives have been discussed and questions answered. Patient agrees to proceed with procedure. Chief complaint: Screening Narrative: Erum Mitchell is a 69 year old female who is here for screening colonoscopy. Review of Systems Review of Systems: All systems reviewed & are unremarkable except as noted in HPI and below Constitutional: Constitutional: Reports no additional constitutional complaints ENT: Reports system reviewed and no additional complaints, except as documented Cardiovascular: Cardiovascular: Reports no additional cardiovascular complaints Respiratory: Respiratory: Reports no additional respiratory complaints Gastrointestinal: Gastrointestinal: Reports no additional gastrointestinal complaints Integumentary/Breasts: Skin/Breast: Reports system reviewed and no additional complaints, except as docu, Reports as per HPI and Reports rash PMFSH Past Medical History Medical History HLD (hyperlipidemia) HTN (hypertension) Depression Anxiety Surgical History Surgical History No pertinent past surgical history Social History Social History Social History: 11/25/24 patient declined SDOH Smoking status: Never smoker Alcohol intake: current Drinks per week: 4 Substance use: never Substance use type: does not use Lack of Transportation: No Lack of Food: Never True Current Housing: I Have Housing Concerned About Future Housing: No Difficulty Paying Gas/Electric Bills: No Difficulty Paying for Meds: No Currently Unemployed: No Difficulty w/ Childcare or Family Care: No Living arrangements: alone Occupation/Education: retired Gender identity (if verbalized by the patient): Female Spiritual care concerns: No Meds Home Medications and Allergies Home Medications ?Medication ?Instructions ?Recorded ?Confirmed ?Type multivitamin 1 tablet PO DAILY 03/07/23 04/15/25 History calcium carbonate 600 mg PO BID 07/05/24 04/15/25 History cholecalciferol (vitamin D3) 25 25 mcg PO DAILY 07/05/24 04/15/25 History mcg (1,000 unit) capsule alprazolam 0.5 mg tablet 0.5 mg PO TID PRN Anxiety #60 tabs 12/02/24 04/15/25 Rx valsartan 160 1 tablet PO DAILY #90 tabs 02/10/25 04/15/25 Rx mg-hydrochlorothiazide 12.5 mg tablet sertraline 50 mg tablet 50 mg PO Q24H 03/21/25 04/15/25 History tretinoin 0.05 % topical cream 1 applic topical DAILY 03/21/25 04/15/25 History triamcinolone acetonide 0.1 % 1 applic topical DAILY 03/21/25 04/15/25 History topical ointment Allergies Allergy/AdvReac Type Severity Reaction Status Date / Time dexlansoprazole Allergy Unknown SWELLING Verified 04/15/25 09:36 TO EYES Vital Signs Vital Signs - 24 hr 04/15/25 09:38 Temperature 98.1 F Pulse Rate 96 Respiratory Rate 16 Blood Pressure 122/67 Pulse Oximetry 100 Oxygen Delivery Room Air Exam Const: General: cooperative, no acute distress, alert and awake Orientation/consciousness: oriented to person, oriented to place and oriented to time HENMT: Head: normal to inspection Resp: Effort & Inspection: normal respiratory effort and able to speak in complete sentences Auscultation: clear to auscultation bilaterally, no crackles, no rales, no rhonchi and no wheezes Cardio: Palpation: normal PMI Rate: regular rate Rhythm: regular rhythm Heart sounds: S1 normal heart sound present and S2 normal heart sound present Neuro: General: oriented to person, oriented to place and oriented to time Cranial nerves: Yes CN's II-XII intact bilaterally Psych: Appearance: grossly normal Thought process: Normal thought process present Insight: Good insight present (Psych) Judgement: Good judgement present (Psych) Assessment and Plan Assessment and plan (1) Normal screening colonoscopy: Code(s): Z12.11 - Encounter for screening for malignant neoplasm of colon Status: Acute Plan 69-year-old female who is here for screening colonoscopy.
[2025-04-15 10:40] VITALS: BP 102/69; PULSE 77; RESP 22; O2SAT 100
[2025-04-15 10:50] VITALS: BP 122/80; PULSE 72; RESP 21; O2SAT 100
[2025-04-15 11:00] VITALS: BP 125/86; PULSE 67; RESP 16; O2SAT 100
--- NOTE | 2025-04-15 11:30 | WPDANESEPPF ---
Anes - Initial Pre Proc Eval Procedure: Operation Date: 04/15/25 11:00 Proposed Procedures p Screening Colonoscopy - Froilan Taylor MD Date/Time: 04/15/25 11:30 Surgeon: Froilan Taylor MD Pre Op Diagnosis: Screening Patient Data Age: 69 Gender: F Height: 1.68 m Weight: 45 kg Last Vital Signs Temp 36.7 C 04/15/25 09:38 Pulse 67 04/15/25 11:00 Resp 16 04/15/25 11:00 BP 125/86 04/15/25 11:00 Pulse Ox 100 04/15/25 11:00 O2 Del Method Room Air 04/15/25 11:00 Allergies Allergy/AdvReac Type Severity Reaction Status Date / Time dexlansoprazole Allergy Unknown SWELLING Verified 04/15/25 09:36 TO EYES Home Medications ?Medication ?Instructions ?Recorded ?Confirmed ?Type multivitamin 1 tablet PO DAILY 03/07/23 04/15/25 History calcium carbonate 600 mg PO BID 07/05/24 04/15/25 History cholecalciferol (vitamin D3) 25 25 mcg PO DAILY 07/05/24 04/15/25 History mcg (1,000 unit) capsule alprazolam 0.5 mg tablet 0.5 mg PO TID PRN Anxiety #60 tabs 12/02/24 04/15/25 Rx valsartan 160 1 tablet PO DAILY #90 tabs 02/10/25 04/15/25 Rx mg-hydrochlorothiazide 12.5 mg tablet sertraline 50 mg tablet 50 mg PO Q24H 03/21/25 04/15/25 History tretinoin 0.05 % topical cream 1 applic topical DAILY 03/21/25 04/15/25 History triamcinolone acetonide 0.1 % 1 applic topical DAILY 03/21/25 04/15/25 History topical ointment Patient hx anesthesia problems: none Family hx anesthesia problems: none Results Review: All pre-operative results and documents have been reviewed as part of the pre-operative evaluation. [facility] Past Medical History Medical History HLD (hyperlipidemia) HTN (hypertension) Depression Anxiety Surgical History Surgical History No pertinent past surgical history Social History Social History Social History: 11/25/24 patient declined SDOH Smoking status: Never smoker Alcohol intake: current Drinks per week: 4 Substance use: never Substance use type: does not use Lack of Transportation: No Lack of Food: Never True Current Housing: I Have Housing Concerned About Future Housing: No Difficulty Paying Gas/Electric Bills: No Difficulty Paying for Meds: No Currently Unemployed: No Difficulty w/ Childcare or Family Care: No Living arrangements: alone Occupation/Education: retired Gender identity (if verbalized by the patient): Female Spiritual care concerns: No Anes - Eval Final PreProcedure Day of Procedure 04/15/25 11:30 Patient weight: normal Heart: regular rate and rhythm Lungs: clear to auscultation and normal air movement Airway: Mallampati scale class II Neurological: alert and oriented Last oral intake: >/= 8 hours ASA classification: II Emergent: no Anesthetic plan: proceed Anesthesia type and monitoring: general GIVS and standard monitoring Results Review: All pre-operative results and documents have been reviewed as part of the pre-operative evaluation. Informed Consent: The patient's anesthetic plan and its attendant risks and benefits were discussed with the patient/family/POA. Questions were solicited and answers provided to the satisfaction of the patient/family/POA.
== END 2025-04-15 11:10 | disposition home or self-care (01) ==
PROVIDERS: Internal Medicine Gastroenterology; PCP Physician Assistant Medical; Referring Provider Physician Assistant Medical; Visit Provider Internal Medicine Gastroenterology
PROC: 0DJD8ZZ Inspection of Lower Intestinal Tract, Via Natural or Artificial Opening Endoscopic (ICD-10-PCS; CPT 45378; principal; 2025-04-15 11:00)
DX: Z12.11 Encounter for screening for malignant neoplasm of colon (principal); K57.30 Diverticulosis of large intestine without perforation or abscess without bleeding
CPT/HCPCS: G0121; J2003; J7120